=== PATIENT | male | born 1965 | race Caucasian/White ===

== ENCOUNTER 2022-02-08 09:23 | Inpatient (IN) ==
--- NOTE | 2022-01-10 14:08 | PAT Medication Instructions ---
Medication Instructions Date of Service January 10, 2022 Home Medications atomoxetine 80 mg capsule (Strattera) 80 mg PO QAM bupropion HCl 100 mg tablet,12 hr sustained-release 100 mg PO BID omeprazole 20 mg capsule,delayed release 20 mg PO QAM tamsulosin 0.4 mg capsule (Flomax) 0.4 mg PO HS zolpidem 10 mg tablet (Ambien) 10 mg PO HS PRN zolpidem 5 mg tablet 10 mg PO HS DO NOT take the morning of surgery atomoxetine 80 mg capsule (Strattera) 80 mg PO QAM Take morning of surgery With a small sip of water, OTHERWISE NOTHING TO EAT OR DRINK AFTER MIDNIGHT: bupropion HCl 100 mg tablet,12 hr sustained-release 100 mg PO BID omeprazole 20 mg capsule,delayed release 20 mg PO QAM Take evening before surgery bupropion HCl 100 mg tablet,12 hr sustained-release 100 mg PO BID tamsulosin 0.4 mg capsule (Flomax) 0.4 mg PO HS zolpidem 10 mg tablet (Ambien) 10 mg PO HS PRN(if needed) zolpidem 5 mg tablet 10 mg PO HS Other Notes If you have any questions please call us at [phone] or [phone] or [phone] or [phone]
--- NOTE | 2022-01-16 11:00 | Anesthesiology Consultation ---
Date of Service January 16, 2022 Assessment & Plan (1) Encounter for pre-operative examination: - possible difficult intubation: chronic neck pain with occasional numbness in L arm; pt states did notify Dr. Cooper's office. Tanisha with surgeon's office made aware. Case discussed with Dr. Leger who advised nothing further needed from anesthesia standpoint. - COVID screening: Per assessment on 01/16/2022: Travel screen negative, no known COVID-19 positive contacts or current COVID-19 related symptoms in past 2 weeks. Pt vaccinated. Surgeon arranging preop COVID testing, scheduled 01/25/2022. Awaiting results. Chart Review Chart Review: Acceptable Risk for Surgery and Patient seen in Pre Admission Testing Teaching & Discussion Pre-Anesthesia Teaching/Discussion Notes: Instructed NPO after midnight before surgery, except medications with 15 cc of water. Medication instructions provided according to the PAT guidelines. History Surgery Operation Date: 01/29/22 10:05 Proposed Procedures p L3-L4 and L5-S1 Decompression, L3-S1 Fusion, L4-L5 Hardware Removal, Spinal Cord Monitoring - Blane Cooper, Height/Weight Height: 5 ft 8 in Weight: 110.6 kg Allergies Allergy/AdvReac Type Severity Reaction Status Date / Time No Known Allergies Allergy Unverified 07/10/12 15:30 Medications Home Medications Medication Instructions Recorded Confirmed Last Taken atomoxetine 80 mg capsule 80 mg PO QAM 01/10/22 01/10/22 Unknown (Strattera) bupropion HCl 100 mg tablet,12 hr 100 mg PO BID 01/10/22 01/10/22 Unknown sustained-release omeprazole 20 mg capsule,delayed 20 mg PO QAM 01/10/22 01/10/22 Unknown release tamsulosin 0.4 mg capsule (Flomax) 0.4 mg PO HS 01/10/22 01/10/22 Unknown zolpidem 10 mg tablet (Ambien) 10 mg PO HS PRN 01/10/22 01/10/22 Unknown zolpidem 5 mg tablet 10 mg PO HS 01/10/22 01/10/22 Unknown Past Medical History Medical History (Updated 01/16/22 @ 11:20 by Madalyn Del Rosario PA-C) BPH (benign prostatic hyperplasia) Chronic back pain Degenerative disc disease GERD (gastroesophageal reflux disease) controlled, stable per pt Hiatal hernia History of COVID-19 spring 2019 - low fever, congestion - no hospitalization - resolved Sleep apnea cpap-compliant Patient denies h/o stroke, seizures, heart attack, heart failure, DM, HTN, blood clots or blood transfusions. Exercise / Class Metabolic Activity III < 4 Walking/Shop/Light housework (denies CP or SOB) Past Family History Family History Mother Diabetes Past Surgical History Surgical History (Updated 01/16/22 @ 11:23 by Madalyn Del Rosario PA-C) History of carpal tunnel release of both wrists History of colonoscopy History of open reduction and internal fixation (ORIF) procedure bilateral thumb joints History of prostate surgery History of vasectomy Hx of arthroscopy of right knee Hx of arthroscopy of shoulder Right, with additional procedure, unknown "repair" per pt Past Anesthesia History No Hx of Anesthesia Complications and Other (father with post-op hypotension) History of PONV No Hx of PONV and No Hx of Motion Sickness Social History Smoking Status: Never smoker Do You Dip or Chew Tobacco: No Hx Alcohol Use: No Hx Substance Use: No substance use type: does not use Review of Systems Patient denies chest pain, shortness of breath, dyspnea on exertion, fever, chills, cough, wheezing, or palpitations. Physical Exam Vital Signs Vitals BP 151/95 P 89 TEMP 98.6 SP02 95% on RA RESP 17 Physical Limited cervical extension range of motion without pain TMD 3.5 finger breadths Mallampati Score 3 Dentition: intact, two chipped teeth-lower side bilat; denies missing or loose teeth, caps/crowns, implants or bridges Lungs: normal respiratory effort. Clear throughout to auscultation, no adventitious breath sounds Cardiac: regular rate and rhythm, no murmurs noted Carotid arteries: negative bruit bilat Lab Results Anesthesia Preop Results Results Anesthesia Widget: WBC 6.94 K/uL (4.8-10.8) 01/16/22 Hgb 13.9 g/dL (14.0-18.0) L 01/16/22 Hct 41.9 % (42-52) L 01/16/22 Plt 285 K/uL (130-400) 01/16/22 Na 138 mmol/L (136-145) 01/16/22 K 4.0 mmol/L (3.5-5.1) 01/16/22 Cl 105 mmol/L (98-107) 01/16/22 CO2 26 mmol/L (21-32) 01/16/22 BUN 16 mg/dl (6-23) 01/16/22 Creat 0.97 mg/dl (0.6-1.4) 01/16/22 Glucose Level 102 mg/dl (70-99(Fasting)) H 01/16/22 PT 11.1 Seconds (9.0-12.0) 01/16/22 PTT 27.1 Seconds (21.0-31.0) 01/16/22 INR 1.0 (0.9-1.1) 01/16/22 Urine Color Yellow 01/16/22 Urine Appearance Clear (Clear) 01/16/22 Urine pH 5.0 (4.5-7.5) 01/16/22 Urine Specific Amelia 1.010 (1.000-1.030) 01/16/22 Urine Protein Negative (Negative) 01/16/22 Urine Glucose (UA) Negative (Negative) 01/16/22 Urine Ketones Negative (Negative) 01/16/22 Urine Blood Negative (Negative) 01/16/22 Urine Nitrite Negative (Negative) 01/16/22 Urine Bilirubin Negative (Negative) 01/16/22 Urine Urobilinogen Negative (Negative) 01/16/22 Urine Leukocyte Esterase Negative (Negative) 01/16/22 Blood Type O Positive 01/16/22 Antibody Screen NEGATIVE 01/16/22 Testing Electrocardiogram Date: 01/16/22 NSR, rate 90 bpm Chest X-Ray Date: 01/16/22 No lines and tubes are seen. The aorta is tortuous. The remainder of the cardiomediastinal silhouette is unremarkable. Lungs are underinflated but clear. No evidence of pleural effusion or pneumothorax. There is suggestion of a hiatal hernia. IMPRESSION: No acute chest disease.
[~2022-02-08 09:23] MED LIST: ACETAMINOPHEN 500 MG TAB PO SCH; CeleBREX 200 MG CAP PO SCH; GABAPENTIN 600 MG DOSE PO SCH; LR 15ML/HR IV SCH; ceFAZolin 2000MG 2,000 MG/15 ML SYR IV SCH
[2022-02-08] MEDS ORDERED: MIDAZOLAM HCL 1 MG/ML 2ML VIAL ONE (10:44)
[2022-02-08] MEDS ORDERED: fentaNYL citrate 100 MCG/2 ML VIAL ONE (10:44)
[2022-02-08] MEDS ORDERED: ONDANSETRON INJ 2 MG/ML 2 ML VIAL IV PRN ×2 (11:44→16:33)
[2022-02-08] MEDS ORDERED: ATROPINE SULFATE 0.1 MG/ML 10ML SYR IV PRN (11:44)
[2022-02-08] MEDS ORDERED: ePHEDrine sulfate 50 MG/ML AMP IV PRN (11:44)
--- NOTE | 2022-02-08 11:51 | History & Physical Bridge Note ---
Date of Service February 08, 2022 History & Physical Bridge Note I have examined the patient, reviewed the History & Physical and in the interval since the performance of the History & Physical I have noted the following changes of clinical significance: no changes noted
--- NOTE | 2022-02-08 11:52 | History & Physical Report ---
Date of Service February 08, 2022 Assessment & Plan (1) Neurogenic claudication due to lumbar spinal stenosis: Plan: L3-L4 and L5-S1 decompression, L3-S1 fusion, L4-L5 hardware removal History of Present Illness Chief Complaint: Back and bilateral leg pain Primary Care Provider: Jose Silver MD This is a 56-year-old male well-known to the presents with worsening back and bilateral leg pain. Failing course of nonoperative care is here for surgical intervention. Allergies Allergy/AdvReac Type Severity Reaction Status Date / Time No Known Allergies Allergy Verified 02/08/22 10:06 Home Medications Medication Instructions Recorded Confirmed Type atomoxetine 80 mg capsule 80 mg PO QAM 01/10/22 02/08/22 History (Strattera) bupropion HCl 100 mg tablet,12 hr 100 mg PO BID 01/10/22 02/08/22 History sustained-release omeprazole 20 mg capsule,delayed 20 mg PO QAM 01/10/22 02/08/22 History release tamsulosin 0.4 mg capsule (Flomax) 0.4 mg PO HS 01/10/22 02/08/22 History zolpidem 10 mg tablet (Ambien) 10 mg PO HS PRN Sleep 01/10/22 02/08/22 History zolpidem 5 mg tablet 10 mg PO HS 01/10/22 02/08/22 History duloxetine 60 mg PO 1XD 02/08/22 02/08/22 History gabapentin 700 mg PO 3XD 02/08/22 02/08/22 History Past Med/Surg History Medical History (Updated 02/08/22 @ 11:51 by Blane Cooper DO) BPH (benign prostatic hyperplasia) Chronic back pain Degenerative disc disease GERD (gastroesophageal reflux disease) controlled, stable per pt Hiatal hernia History of COVID-spring - low fever, congestion - no hospitalization - resolved Sleep apnea cpap-compliant Surgical History History of carpal tunnel release of both wrists History of colonoscopy History of open reduction and internal fixation (ORIF) procedure bilateral thumb joints History of prostate surgery History of vasectomy Hx of arthroscopy of right knee Hx of arthroscopy of shoulder Right, with additional procedure, unknown "repair" per pt Family History Mother Diabetes Social History Smoking Status: Never smoker Second Hand Exposure: No; Do You Dip or Chew Tobacco: No; Tobacco Cessation Education Requested by Patient: No Hx Alcohol Use: No Hx Substance Use: No Preferred Language: German Communication Ability: Effective Manager Package Required: No Beliefs That Will Affect Care: None Current Living Situation: Spouse Other Information That Helps Us Care for You: No Feels Safe at Home: Yes Safety Concerns: Feels Safe At This Time Assistive Devices: CPAP and Glasses Physical Exam Physical Exam: Patient is alert and oriented Heart regular in rhythm Lungs clear Results & Data Results & Data ([facility]) Vital Signs (Past 12 Hours) Vital Signs Temp Pulse Resp BP Pulse Ox O2 Del Method 02/08/22 10:04 36.7 C 84 20 152/101 H 95 Room Air
[2022-02-08] MEDS ORDERED: ceFAZolin 330 MG/ML 1 GM VIAL ONE (11:55)
[2022-02-08] MEDS ORDERED: BUPIVACAINE/EPINEPHRINE 0.25% 1:200,000 30 ML VIAL ONE (11:55)
[2022-02-08] MEDS ORDERED: GLYCOPYRROLATE 0.2 MG/ML VIAL ONE (11:57)
[2022-02-08] MEDS ORDERED: ROCURONIUM BROMIDE 10 MG/ML 5 ML VIAL IV ONE ×3 (11:57→13:19)
[2022-02-08] MEDS ORDERED: LIDOCAINE 2% MPF LOCAL 5 ML VIAL INFIL ONE (11:57)
[2022-02-08] MEDS ORDERED: PROPOFOL IV EMULSION 10 MG/ML 20 ML VIAL IV ONE (11:57)
[2022-02-08] MEDS ORDERED: DEXAMETHASONE SOD INJ 4 MG/ML VIAL ONE (11:57)
[2022-02-08] MEDS ORDERED: NEOSTIGMINE METHYLSULFATE 1 MG/ML 10ML VIAL ONE (11:57)
[2022-02-08] MEDS ORDERED: ONDANSETRON INJ 2 MG/ML 2 ML VIAL ONE (11:57)
[2022-02-08] MEDS ORDERED: FLOSEAL HEMOSTATIC MATRIX 10ML TOP ONE (14:31)
--- NOTE | 2022-02-08 15:06 | Operative Report ---
Post Operative Report Pre & Post Diagnosis Operation Date: 02/08/22 11:55 Pre-Op Diagnosis: Neurogenic Claudication due to Lumbar Spinal Stenosis Post-Op Diagnosis: Neurogenic Claudication due to Lumbar Spinal Stenosis I identified the patient and participated in the time-out.: Yes Procedure Operation Date: 02/08/22 11:55 Actual Procedures #1 removal of posterior instrumentation L4-L5 per #2 exploration of fusion L4-5. #3 lumbar decompression bilateral medial facetectomies and foraminotomies L3-L4 L5-S1. #4 posterior spinal fusion L3-L4 L5-S1. #5 placement posterior instrumentation L3-S1. #6 interbody fusion L3-L4 L4-5. #7 placement of Spira 15 x 26 mm cage at L3-L4 and L5-S1. #8 placement locally harvested morselized autograft in the posterior legs. #9 placement of I factor model V toss interbody space and posterior gutters. Surgeon Blane Cooper, DO Spike Maker [place] Estimated Blood Loss 850 Findings See Below The patient is 5 foot 8 weighing over 108 kg a BMI in excess of 36. This combined with an EBL of greater than 850 cc created significant technical difficulty requiring her deepest retractors longus instruments in order to perform his procedure. This at least 50% increased operative time. Specimens None Indications This is a 56-year-old male who presents with above-mentioned diagnosis after failing course of nonoperative care is here for surgical invention. Description of Procedure Patient is met with identified informed consent obtained. Patient was then taken to the operative suite underwent a patient placed in a prone position the [place] table top Farzad frame. All bony prominences well-padded eyes inspected to ensure no external pressure placed upon the. This point the lumbar spine was prepped and draped in normal sterile fashion. Sharp dissection with the assistance of Bovie cardiac form down to and exposing the lamina and transverse processes of L3 and instrumentation at L4-L5 and the lamina 5 and the transverse processes and sacral ala. I then proceeded move the hardware at L4-L5 bilaterally explore the fusion mass noting it to be mature and intact. Then formed a complete laminectomy L5 followed by complete laminectomy of L3 including bilateral medial facetectomies and foraminotomies addressing severe subarticular and foraminal stenosis. Pedicle screws were then placed in L3-L4-L5 and S1 levels bilaterally with assistance of fluoroscopy and the properly sized mikhail placed. By way of a transforaminal approach on the left complete discectomy of L5-S1 was performed endplates curetted to subcortical bleeding bone and a 15 x 26 mm spiral cage filled with I factor tapped in position. Then proceeded L3-L4 to get by way of a transfemoral approach and left complete discectomy performed endplates curetted to subcortical bleeding bone and again a 15 x 26 mm spiral cage filled I factor tapped in position. The rods were then compressed locked into final position bilaterally. The transverse processes of L3-L4-L5 and the sacral ala burred to subcortical bleeding bone. I factor combined with V toss and locally harvested morselized autograft was then placed in the posterior lateral gutters. 15 round LINK drain inserted. The incision was then closed with 1 Vicryl to fascia 2-0 Vicryl subcutaneously and 4 Monocryl for final skin closure. Steri-Strip sterile dressings placed. Patient waken taken PACU stable condition. Please note spinal cord monitoring was utilized at the procedure no changes noted. Lastly Nia Park was present out the entire surgery and while the patient positioning complex portions of the surgery and final skin closure. I attest to the content of the Intraoperative Record and any orders documented therein. Any exceptions are noted below.
--- NOTE | 2022-02-08 15:08 | Fluoroscopy Report ---
FL lumbar spine 2-3V CLINICAL HISTORY: L4-5 REMOVE HARDWARE L3-S1 DFI COMPARISON STUDY: None. FLUOROSCOPY TIME: 28 seconds. FINDINGS: 4 fluoroscopic spot images of the lumbar spine demonstrate posterior decompression and fusi on from L3 through S1 with pedicle screws and rods. Disc spacers are in place. The hardware appears i ntact. IMPRESSION: Fluoroscopic assistance provided for L3-S1 posterior decompression and fusion. ACT 112: Negative or not required by law. Electronically signed by: Ankit Garcia M.D. 02/08/2022 3:07 PM
[2022-02-08] MEDS ORDERED: PHENYLEPHRINE HCL 10 MG/ML VIAL ONE (15:20)
[2022-02-08] MEDS ORDERED: ePHEDrine sulfate 50 MG/ML AMP ONE (15:20)
[2022-02-08] MEDS: fentaNYL citrate 100 MCG/2 ML VIAL IV PRN ×3 (15:27→16:02)
[2022-02-08] MEDS ORDERED: ALUMINUM/MAGNESIUM SUSP 30 ML UDC PO PRN (16:33)
[2022-02-08] MEDS ORDERED: FAMOTIDINE 20 MG TAB PO PRN (16:33)
[2022-02-08] MEDS ORDERED: HYDROmorphone INJ 1 MG/ML SYRINGE IV PRN (16:33)
[2022-02-08] MEDS ORDERED: ZOLPIDEM TARTRATE 10 MG TAB PO PRN (16:33)
[2022-02-08] MEDS ORDERED: SOD PHOSPHATE/SOD BIPHOSPHATE ENEMA 132 ML BTL PR PRN (16:33)
[2022-02-08] MEDS ORDERED: MAGNESIUM HYDROXIDE SUSP 30 ML UDC PO PRN (16:33)
[2022-02-08] MEDS ORDERED: traMADol HCL 50 MG TABLET PO PRN (16:33)
[2022-02-08] MEDS ORDERED: METOCLOPRAMIDE HCL INJ 5 MG/ML 2 ML VIAL IV PRN (16:33)
[2022-02-08] MEDS ORDERED: hydrOXYzine HCl 25 MG TAB PO PRN (16:33)
[2022-02-08] MEDS ORDERED: LORazepam 0.5 MG TAB PO PRN (16:33)
[2022-02-08] MEDS ORDERED: ACETAMINOPHEN 500 MG TAB PO PRN (16:33)
[2022-02-08] MEDS ORDERED: PROMETHAZINE HCL 12.5 MG in SODIUM CHLORIDE 0.9% 50 ML IV PRN (16:33)
[2022-02-08] MEDS ORDERED: DO NOT ADMINISTER FLU VACCINE PRN (16:33)
[2022-02-08] MEDS ORDERED: NALOXONE HCL 0.4 MG/1 ML VIAL/CARP IV PRN (16:33)
[2022-02-08] MEDS ORDERED: ACETAMINOPHEN 1,000 MG/100 ML VIAL IV PRN (16:33)
[2022-02-08] MEDS ORDERED: DO NOT ADMINISTER PNEUMOCOCCAL VACCINE PRN (16:33)
[2022-02-08] MEDS ORDERED: bisacodyL 10 MG SUPP PR PRN (16:33)
[2022-02-08] MEDS ORDERED: LORazepam 0.5 MG in SYRINGE 0.25 ML IV PRN (16:33)
[2022-02-08] MEDS ORDERED: diphenhydrAMINE Capsule 25 MG CAP PO PRN (16:33)
[2022-02-08] MEDS ORDERED: ONDANSETRON 4 MG OD TAB PO PRN (16:33)
--- NOTE | 2022-02-08 16:47 | Anesthesiology Progress Note ---
Date of Service February 08, 2022 Anesthesia Post Procedure Vital Signs Vital Signs: Temp Pulse Pulse Resp BP BP Pulse Ox 02/08/22 16:35 96 H 20 110/70 97 02/08/22 16:20 87 20 119/76 95 02/08/22 16:10 95 H 19 113/60 98 02/08/22 16:00 36.5 C 96 H 14 106/72 94 02/08/22 15:50 91 H 21 139/78 94 02/08/22 15:40 88 18 135/85 95 02/08/22 15:30 88 18 126/79 98 02/08/22 15:20 93 H 24 124/69 94 02/08/22 15:11 36.0 C L 98 H 25 H 105/64 94 02/08/22 10:04 36.7 C 84 20 152/101 H 95 O2 Del Method O2 Flow Rate 02/08/22 16:35 Nasal Cannula 2 02/08/22 16:20 Nasal Cannula 2 02/08/22 16:10 Room Air 02/08/22 16:00 Room Air 02/08/22 15:50 Oxymask 7 02/08/22 15:40 Oxymask 7 02/08/22 15:30 Oxymask 7 02/08/22 15:20 Oxymask 7 02/08/22 15:11 Oxymask 7 02/08/22 10:04 Room Air Pain Intensity Lower Back: Pain Intensity: 1 Back: Pain Intensity: 4 Transfer of Care Handoff Completed per policy Notes Mental Status: alert / awake / arousable Patient Amnestic to Procedure: Yes Nausea / Vomiting: adequately controlled Pain: adequately controlled Airway Patency, RR, SpO2: stable & adequate BP & HR: stable & adequate Hydration State: stable & adequate Anesthetic Complications: no major complications apparent
[2022-02-08] MEDS: LACTATED RINGER'S 1,000 ML IV SCH ×2 (16:57→20:58)
[2022-02-08] MEDS: HYDROmorphone INJ 0.5 MG/0.5 ML SYR IV PRN ×2 (17:39→20:59)
[2022-02-08] MEDS: oxyCODONE HCL IR 5 MG TAB (IMMEDIATE RELEASE) PO PRN ×2 (19:10→23:16)
[2022-02-08] MEDS: buPROPion SR 100 MG TABCR PO SCH (20:26)
[2022-02-08] MEDS: ceFAZolin 2000MG 2,000 MG/15 ML SYR IV SCH (20:58)
[2022-02-08] MEDS: ZOLPIDEM TARTRATE 10 MG TAB PO SCH (20:58)
[2022-02-08] MEDS: TAMSULOSIN HCL 0.4 MG CAP PO SCH (20:59)
[2022-02-08] MEDS: GABAPENTIN 400 MG CAP PO SCH (21:00)
[2022-02-08] MEDS: DOCUSATE SODIUM/SENNA 50/8.6MG TAB PO SCH (21:00)
[2022-02-08] MEDS: GABAPENTIN 300 MG CAP PO SCH (21:00)
--- NOTE | 2022-02-08 21:31 | Hospitalist Consultation ---
Date of Consultation February 08, 2022 Assessment & Plan (1) Neurogenic claudication due to lumbar spinal stenosis: Final Assessment and Recommendations as follows : LSS status post surgery Patient comfortable Postop tachycardia secondary to mild clinical dehydration with note of increase in creatinine hypertension, stable not on maintenance meds ADD/mood disorder, stable BPH, stable on Flomax prediabetes, hemoglobin A1c of 6.14 December 2019 Postop anemia MORTEZA on CPAP IVF Hold parameters for multiple neuropsychotropic medications for sedation/confusion Transfuse PRBC if hemoglobin less than 7 and or for symptomatic anemia Update hemoglobin A1c May need basal bolus insulin if BSG greater than 140 following inpatient steroid course. DVT prophylaxis. SCDs as per postop orders Thank you very much for this consultation. Dr. Hernadez will follow patient's progress. Text document was generated using [employer] voice recognition software. It may contain grammatical or spelling errors. Kindly contact undersigned for clarification of any documentation item in question. History of Present Illness Reason for Consultation: Medical management Requesting Physician: Dr. Cooper Attending Physician: Blane Cooper DO History of Present Illness PCP : Dr. Silver History obtained from patient and records. Medical history significant for hypertension, ADD/mood disorder, NAFLD, BPH, prediabetes, MORTEZA on CPAP. Last confinement 2011 under [facility] spine service for lumbar decompression surgery. Patient underwent decompression surgery today for L SS. Postop discomfort tolerable. Patient denies chest pain, SOB. Medical History as above Surgical History : Back surgery, carpal tunnel surgery, knee surgery, urologic procedure, carpectomy, shoulder surgery, vasectomy Family History : DM, heart disease, prostate cancer Personal/Social history : Non-smoker, occasional EtOH intake, Polar Allergies Allergy/AdvReac Type Severity Reaction Status Date / Time No Known Allergies Allergy Verified 02/08/22 10:06 Home Medications Medication Instructions Recorded Confirmed Type atomoxetine 80 mg capsule 80 mg PO QAM 01/10/22 02/08/22 History (Strattera) bupropion HCl 100 mg tablet,12 hr 100 mg PO BID 01/10/22 02/08/22 History sustained-release omeprazole 20 mg capsule,delayed 20 mg PO QAM 01/10/22 02/08/22 History release tamsulosin 0.4 mg capsule (Flomax) 0.4 mg PO HS 01/10/22 02/08/22 History zolpidem 10 mg tablet (Ambien) 10 mg PO HS PRN Sleep 01/10/22 02/08/22 History zolpidem 5 mg tablet 10 mg PO HS 01/10/22 02/08/22 History duloxetine 60 mg PO 1XD 02/08/22 02/08/22 History gabapentin 700 mg PO 3XD 02/08/22 02/08/22 History Patient History Medical History (Updated 02/08/22 @ 11:51 by Blane Cooper DO) BPH (benign prostatic hyperplasia) Chronic back pain Degenerative disc disease GERD (gastroesophageal reflux disease) controlled, stable per pt Hiatal hernia History of COVID-19 spring 2019 - low fever, congestion - no hospitalization - resolved Sleep apnea cpap-compliant Surgical History History of carpal tunnel release of both wrists History of colonoscopy History of open reduction and internal fixation (ORIF) procedure bilateral thumb joints History of prostate surgery History of vasectomy Hx of arthroscopy of right knee Hx of arthroscopy of shoulder Right, with additional procedure, unknown "repair" per pt Family History Mother Diabetes Social History Smoking Status: Never smoker Second Hand Exposure: No; Do You Dip or Chew Tobacco: No; Tobacco Cessation Education Requested by Patient: No Hx Alcohol Use: No Hx Substance Use: No Preferred Language: Turkish Communication Ability: Effective 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 Beliefs That Will Affect Care: None Current Living Situation: Spouse Other Information That Helps Us Care for You: No Feels Safe at Home: Yes Safety Concerns: Feels Safe At This Time Assistive Devices: CPAP and Glasses Review of Systems 2 Review of Systems: As per HPI, all other systems reviewed and negative Physical Exam Physical Exam: GENERAL: Comfortable, pleasant, obese, no respiratory distress SKIN: Pallor,, warm HEENT: Pale palpebral conjunctivae, no ptosis, dry buccal mucosa NECK : Supple, short neck, no tenderness CHEST : CTA, no tenderness HEART : Tachycardic, no obvious murmurs ABDOMEN: Some distention, nontender EXTREMITIES : Minimal LE swelling, no LE tenderness, no other conspicuous deformities noted NEUROLOGIC : Coherent, no facial asymmetry, no other gross focality Results & Data Results & Data ([facility]) Vital Signs (Past 12 Hours) Vital Signs Temp Pulse Pulse Resp BP BP Pulse Ox 02/08/22 19:45 37.3 C 108 H 18 115/72 93 02/08/22 19:25 99 H 20 121/76 95 02/08/22 18:40 36.8 C 100 H 20 131/75 95 02/08/22 18:10 98 H 21 119/80 93 02/08/22 17:50 104 H 20 122/79 93 02/08/22 17:35 36.2 C L 98 H 18 114/78 95 02/08/22 17:20 102 H 19 119/72 95 02/08/22 17:05 101 H 23 111/79 94 02/08/22 16:50 99 H 22 106/83 96 02/08/22 16:35 96 H 20 110/70 97 02/08/22 16:20 87 20 119/76 95 02/08/22 16:10 95 H 19 113/60 98 02/08/22 16:00 36.5 C 96 H 14 106/72 94 02/08/22 15:50 91 H 21 139/78 94 02/08/22 15:40 88 18 135/85 95 02/08/22 15:30 88 18 126/79 98 02/08/22 15:20 93 H 24 124/69 94 02/08/22 15:11 36.0 C L 98 H 25 H 105/64 94 02/08/22 10:04 36.7 C 84 20 152/101 H 95 O2 Del Method O2 Flow Rate 02/08/22 19:45 Nasal Cannula 2 02/08/22 19:25 Nasal Cannula 2 02/08/22 18:40 Nasal Cannula 2 02/08/22 18:10 Nasal Cannula 2 02/08/22 17:50 Nasal Cannula 2 02/08/22 17:35 Nasal Cannula 2 02/08/22 17:20 Nasal Cannula 2 02/08/22 17:05 Nasal Cannula 2 02/08/22 16:50 Nasal Cannula 2 02/08/22 16:35 Nasal Cannula 2 02/08/22 16:20 Nasal Cannula 2 02/08/22 16:10 Room Air 02/08/22 16:00 Room Air 02/08/22 15:50 Oxymask 7 02/08/22 15:40 Oxymask 7 02/08/22 15:30 Oxymask 7 02/08/22 15:20 Oxymask 7 02/08/22 15:11 Oxymask 7 02/08/22 10:04 Room Air Laboratory Results Laboratory Results POC Glucose 90 mg/dl (70-99) 02/08/22 10:05 Blood Type O Positive 02/08/22 10:03 Antibody Screen NEGATIVE 02/08/22 10:03 Crossmatch See Detail 02/08/22 10:03 Impressions Lumbar Spine X-Ray 02/08/22 11:55 FL lumbar spine 2-3V CLINICAL HISTORY: L4-5 REMOVE HARDWARE L3-S1 DFI COMPARISON STUDY: None. FLUOROSCOPY TIME: 28 seconds. FINDINGS: 4 fluoroscopic spot images of the lumbar spine demonstrate posterior decompression and fusion from L3 through S1 with pedicle screws and rods. Disc spacers are in place. The hardware appears intact. IMPRESSION: Fluoroscopic assistance provided for L3-S1 posterior decompression and fusion. ACT 112: Negative or not required by law. Electronically signed by: Ankit Garcia M.D. 02/08/2022 3:07 PM Diagnostic Findings Lab Results 02/08/22 02/08/22 02/08/22 Range/Units 10:03 10:05 21:45 WBC 13.46 H (4.8-10.8) K/ul RBC 4.14 L (4.63-6.08) M/uL Hgb 12.3 L (14.0-18.0) g/dl Hct 37.2 L (40.1-51.0) % MCV 89.9 (80.0-100.0) fL MCH 29.7 (25.0-34.0) pg MCHC 33.1 (32.0-36.0) g/dL RDW Std Deviation 42.5 (36.4-46.3) fL RDW Coeff of Adonay 13.0 (11.5-14.5) % Plt Count 298 (130-400) K/uL MPV 9.9 (9.4-12.4) fL Immature Gran % (Auto) 0.4 % Neut % (Auto) 86.2 % Lymph % (Auto) 6.9 % [place] % (Auto) 6.4 % Eos % (Auto) 0.0 % Baso % (Auto) 0.1 % Neut # (Auto) 11.60 H (1.4-6.5) K/uL Lymph # (Auto) 0.93 L (1.2-3.4) K/uL [place] # (Auto) 0.86 H (0.24-0.82) K/uL Eos # (Auto) 0.00 (0-0.50) K/uL Baso # (Auto) 0.01 (0-0.2) K/uL Immature Gran # (Auto) 0.06 H (0.00-0.02) K/uL Sodium (136-145) mmol/L Potassium (3.5-5.1) mmol/L Chloride (98-107) mmol/L Carbon Dioxide (21-32) mmol/L Anion Gap (3-11) BUN (6-23) mg/dl Creatinine (0.6-1.4) mg/dl Est Cr Clr Drug Dosing ml/min Est GFR ( Amer) ml/min Est GFR (Non-Af Amer) ml/min BUN/Creatinine Ratio (10-20) Glucose (70-99(Fasting)) mg/dl POC Glucose 90 (70-99) mg/dl Calcium (8.5-10.1) mg/dl Magnesium (1.7-2.4) mg/dl Blood Type O Positive Antibody Screen NEGATIVE Crossmatch See Detail 02/08/22 Range/Units 21:45 WBC (4.8-10.8) K/ul RBC (4.63-6.08) M/uL Hgb (14.0-18.0) g/dl Hct (40.1-51.0) % MCV (80.0-100.0) fL MCH (25.0-34.0) pg MCHC (32.0-36.0) g/dL RDW Std Deviation (36.4-46.3) fL RDW Coeff of Adonay (11.5-14.5) % Plt Count (130-400) K/uL MPV (9.4-12.4) fL Immature Gran % (Auto) % Neut % (Auto) % Lymph % (Auto) % [place] % (Auto) % Eos % (Auto) % Baso % (Auto) % Neut # (Auto) (1.4-6.5) K/uL Lymph # (Auto) (1.2-3.4) K/uL [place] # (Auto) (0.24-0.82) K/uL Eos # (Auto) (0-0.50) K/uL Baso # (Auto) (0-0.2) K/uL Immature Gran # (Auto) (0.00-0.02) K/uL Sodium 134 L (136-145) mmol/L Potassium 4.9 (3.5-5.1) mmol/L Chloride 102 (98-107) mmol/L Carbon Dioxide 26 (21-32) mmol/L Anion Gap 6 (3-11) BUN 21 (6-23) mg/dl Creatinine 1.30 (0.6-1.4) mg/dl Est Cr Clr Drug Dosing 74.8 ml/min Est GFR ( Amer) 70.2 ml/min Est GFR (Non-Af Amer) 60.6 ml/min BUN/Creatinine Ratio 16.2 (10-20) Glucose 158 H (70-99(Fasting)) mg/dl POC Glucose (70-99) mg/dl Calcium 8.5 (8.5-10.1) mg/dl Magnesium 1.6 L (1.7-2.4) mg/dl Blood Type Antibody Screen Crossmatch EKG as per my interpretation :Rate 95, NSR, normal axis, no ischemia
[2022-02-08 21:52] LABS: Basophils # (auto) 0.01 K/uL (0-0.2); Basophils % (auto) 0.1 %; Hematocrit (blood only) 37.2 % (40.1-51.0); Hemoglobin 12.3 g/dl (14.0-18.0); Immature Granulocytes # (auto) 0.06 K/uL (0.00-0.02); Immature Granulocytes % (auto) 0.4 %; Lymphocytes # (auto) 0.93 K/uL (1.2-3.4); Lymphocytes % (auto) 6.9 %; Mean Corpuscular Hemoglobin 29.7 pg (25.0-34.0); Mean Corpuscular Hgb Conc 33.1 g/dL (32.0-36.0); Mean Corpuscular Volume 89.9 fL (80.0-100.0); Mean Platelet Volume 9.9 fL (9.4-12.4); Monocytes # (auto) 0.86 K/uL (0.24-0.82); Monocytes % (auto) 6.4 %; Neutrophils % (auto) 86.2 %; Platelet Count 298 K/uL (130-400); RDW Standard Deviation 42.5 fL (36.4-46.3); Red Blood Count 4.14 M/uL (4.63-6.08); White Blood Count 13.46 K/ul (4.8-10.8)
[2022-02-08 22:14] LABS: BUN Creatinine Ratio 16.2 (10-20); Calcium 8.5 mg/dl (8.5-10.1); Creatinine Clr Calc Pharmacy 74.8 ml/min; Est GFR (African American) 70.2 ml/min; Est GFR (Non-African American) 60.6 ml/min; Magnesium 1.6 mg/dl (1.7-2.4); Potassium 4.9 mmol/L (3.5-5.1)
[2022-02-08] MEDS ORDERED: SODIUM CHLORIDE 0.9% 1000ML 1,000 ML IV ONE (22:18)
[2022-02-08] MEDS: MAGNESIUM SULFATE / D5W 1 GM/100 ML BAG IV SCH (22:51)
[2022-02-09] MEDS: MAGNESIUM SULFATE / D5W 1 GM/100 ML BAG IV SCH (00:40)
[2022-02-09] MEDS: ceFAZolin 2000MG 2,000 MG/15 ML SYR IV SCH (03:35)
[2022-02-09] MEDS: POLYETHYLENE (MIRALAX) 17 GM PACK PO SCH ×4 (06:12→23:47)
[2022-02-09 06:23] LABS: Basophils # (auto) 0.02 K/uL (0-0.2); Basophils % (auto) 0.1 %; Eosinophils # (auto) 0.01 K/uL (0-0.50); Eosinophils % (auto) 0.1 %; Hematocrit (blood only) 35.8 % (40.1-51.0); Hemoglobin 11.8 g/dl (14.0-18.0); Immature Granulocytes # (auto) 0.06 K/uL (0.00-0.02); Immature Granulocytes % (auto) 0.4 %; Lymphocytes # (auto) 2.09 K/uL (1.2-3.4); Lymphocytes % (auto) 15.2 %; Mean Corpuscular Hemoglobin 29.6 pg (25.0-34.0); Mean Corpuscular Volume 89.7 fL (80.0-100.0); Mean Platelet Volume 9.8 fL (9.4-12.4); Monocytes # (auto) 1.67 K/uL (0.24-0.82); Monocytes % (auto) 12.2 %; Neutrophils # (auto) 9.88 K/uL (1.4-6.5); Platelet Count 285 K/uL (130-400); RDW Standard Deviation 42.7 fL (36.4-46.3); Red Blood Count 3.99 M/uL (4.63-6.08); White Blood Count 13.73 K/ul (4.8-10.8)
[2022-02-09] MEDS: oxyCODONE HCL IR 5 MG TAB (IMMEDIATE RELEASE) PO PRN ×4 (06:28→22:01)
[2022-02-09 07:00] LABS: BUN Creatinine Ratio 17.4 (10-20); Calcium 8.1 mg/dl (8.5-10.1); Creatinine Clr Calc Pharmacy 89.3 ml/min; Est GFR (African American) 86.9 ml/min; Est GFR (Non-African American) 74.9 ml/min; Magnesium 2.1 mg/dl (1.7-2.4); Potassium 4.5 mmol/L (3.5-5.1)
[2022-02-09 07:20] LABS: Estimated Average Glucose 137 mg/dl; Hemoglobin A1C 6.4 % (4.5-5.6)
[2022-02-09] MEDS: HYDROmorphone INJ 0.5 MG/0.5 ML SYR IV PRN (07:46)
[2022-02-09] MEDS: GABAPENTIN 400 MG CAP PO SCH ×3 (08:57→21:48)
[2022-02-09] MEDS: dexAMETHasone 6 MG in SYRINGE 0 ML IV SCH (08:57)
[2022-02-09] MEDS: GABAPENTIN 300 MG CAP PO SCH ×3 (08:57→21:50)
[2022-02-09] MEDS: buPROPion SR 100 MG TABCR PO SCH ×2 (08:58→21:51)
[2022-02-09] MEDS: PANTOprazole 40 MG TAB PO SCH (08:58)
[2022-02-09] MEDS: DULoxetine HCL 60 MG CAP PO SCH (08:58)
[2022-02-09] MEDS: ATOMOXETINE HCL 40 MG CAPSULE PO SCH (08:59)
--- NOTE | 2022-02-09 14:08 | Hospitalist Progress Note ---
Date of Service February 09, 2022 Assessment & Plan (1) Neurogenic claudication due to lumbar spinal stenosis: Plan: LSS status post surgery-recovering well, pain well controlled on current medical therapy hypertension, stable not on maintenance meds ADD/mood disorder, stable, cont home strattera BPH, stable on Flomax prediabetes, hemoglobin A1c of 6.14 December 2019, inpatient glucose at goal. expected postop anemia MORTEZA on CPAP Thank you for this consultation. Glendy Hernadez DO [facility] Hospitalist Admission and Anticipated Discharge Date Admission Date: February 08, 2022 Subjective s/p L spine surgery on 02/08 pain well managed pt is ambulating with walker slight numbness in feet when walking denies CP or SOB overall feels he is doing well with his recovery Review of Systems Review of Systems: All systems were reviewed and negative except as indicated above. Physical Exam Physical Exam: CONSTITUTIONAL: WNWD, vitals as above, generally well-appear ing, NAD EYES: normal conjunctivae, no scleral icterus, ENT: external ear and nose normal,MMM NECK: trachea midline, RESPIRATORY: clear to auscultation bilaterally, no crackles, rales or wheezes, normal respiratory effort CARDIOVASCULAR: regular rate and rhythm, S1 and 2 heard without murmurs, gallops or rubs, no JVD, no peripheral edema, CHEST: inspection of chest was normal GASTROINTESTINAL: soft, nontender, ND no guarding MUSCULOSKELETAL: strength 5/5 throughout, head is normocephalic and atraumatic, SKIN: warm and dry, back incision not examined as surgical dressing in place, c /d/i NEUROLOGIC: CN 2-12 grossly intact, no sensory deficit, normal cognition, normal speech, no tremor PSYCHIATRIC: alert cooperative and oriented to person, place and time. Euthymic mood, makes good eye contact, language grossly intact, recent and remote memory grossly intact. Results & Data Results & Data ([facility]) Vital Signs (Past 12 Hours) Vital Signs Temp Pulse Pulse Resp BP Pulse Ox O2 Del Method 02/09/22 11:42 36.8 C 98 H 18 122/81 93 Room Air 02/09/22 09:04 93 Room Air 02/09/22 07:14 36.4 C L 89 18 136/89 95 Nasal Cannula 02/09/22 02:44 36.4 C L 84 18 133/83 96 Nasal Cannula O2 Flow Rate 02/09/22 11:42 02/09/22 09:04 02/09/22 07:14 2 02/09/22 02:44 2 Laboratory Results Short CBC 02/08/22 02/09/22 Range/Units 21:45 06:04 WBC 13.46 H 13.73 H (4.8-10.8) K/ul Hgb 12.3 L 11.8 L (14.0-18.0) g/dl Hct 37.2 L 35.8 L (40.1-51.0) % Plt Count 298 285 (130-400) K/uL BMP 02/08/22 02/09/22 21:45 06:04 Sodium 134 L 135 L Potassium 4.9 4.5 Chloride 102 102 Carbon Dioxide 26 27 BUN 21 19 Creatinine 1.30 1.09 Glucose 158 H 122 H Calcium 8.5 8.1 L Medications Administered Current Inpatient Medications Acetaminophen (Acetaminophen 500 Mg Tab) 1,000 mg PO Q8H PRN PRN Reason: MILD Pain Scale 1,2,3 & Pre PT Stop: 03/10/22 16:32 Al Hydrox/Mg Hydrox/Simethicone (Aluminum/Magnesium Susp 30 Ml Udc) 30 ml PO Q6H PRN PRN Reason: Dyspepsia Stop: 03/10/22 16:32 Atomoxetine HCl (Atomoxetine Hcl 40 Mg Capsule) 80 mg PO QAM [facility] Stop: 03/11/22 08:59 Last Admin: 02/09/22 08:59 Dose: 80 mg Bisacodyl (Bisacodyl 10 Mg Supp) 10 mg MO DAILY PRN PRN Reason: Constipation Stop: 03/10/22 16:32 Bupropion HCl (Bupropion Sr 100 Mg Tabcr) 100 mg PO BID [facility] Stop: 03/10/22 20:59 Last Admin: 02/09/22 08:58 Dose: 100 mg Diphenhydramine HCl (Diphenhydramine Capsule 25 Mg Cap) 25 mg PO Q6H PRN PRN Reason: Allergic Rhinitis/Insomnia Stop: 03/10/22 16:32 Duloxetine HCl (Duloxetine Hcl 60 Mg Cap) 60 mg PO DAILY [facility] Stop: 03/11/22 08:59 Last Admin: 02/09/22 08:58 Dose: 60 mg Famotidine (Famotidine 20 Mg Tab) 20 mg PO Q12H PRN PRN Reason: Dyspepsia Stop: 03/10/22 16:32 Gabapentin (Gabapentin 300 Mg Cap) 300 mg PO TID [facility] Stop: 03/10/22 20:59 Last Admin: 02/09/22 13:55 Dose: 300 mg Gabapentin (Gabapentin 400 Mg Cap) 400 mg PO TID [facility] Stop: 03/10/22 20:59 Last Admin: 02/09/22 13:55 Dose: 400 mg Hydromorphone HCl (Hydromorphone Inj 0.5 Mg/0.5 Ml Syr) 0.5 mg IV Q3H PRN PRN Reason: MODERATE Pain (Scale 4,5,6) & Pre PT Stop: 02/22/22 16:32 Last Admin: 02/09/22 07:46 Dose: 0.5 mg Hydromorphone HCl (Hydromorphone Inj 1 Mg/Ml Syringe) 1 mg IV Q3H PRN PRN Reason: SEVERE Pain (Scale 7,8,9,10) Stop: 02/22/22 16:32 Last Admin: 02/09/22 02:55 Dose: 1 mg Hydroxyzine HCl (Hydroxyzine Hcl 25 Mg Tab) 25 mg PO Q8H PRN PRN Reason: Anxiety Stop: 03/10/22 16:32 Promethazine HCl 12.5 mg/ (Sodium Chloride) 50.5 mls @ 202 mls/hr IV Q6H PRN PRN Reason: Nausea &/or Vomiting Stop: 03/10/22 16:32 Acetaminophen (Ofirmev) 1,000 mg in 100 mls @ 400 mls/hr IV Q8H PRN PRN Reason: Pain Rating 1-3 & Pre PT Stop: 02/09/22 16:33 Lorazepam 0.5 mg/ Syringe 0.5 mls @ 2 mls/min IV Q8H PRN PRN Reason: Sedation/Anxiety Stop: 03/10/22 16:32 Dexamethasone 6 mg/ Syringe 1.5 mls @ 1 mls/min IV DAILY [facility] Stop: 02/11/22 09:02 Last Admin: 02/09/22 08:57 Dose: 1 mls/min Influenza Virus Vaccine Quadrival (Do Not Administer Flu Vaccine) 1 each N/A PRN PRN PRN Reason: Notification Stop: 03/10/22 16:32 Lorazepam (Lorazepam 0.5 Mg Tab) 0.5 mg PO Q8H PRN PRN Reason: Sedation/Anxiety Stop: 03/10/22 16:32 Magnesium Hydroxide (Magnesium Hydroxide Susp 30 Ml Udc) 30 ml PO Q24H PRN PRN Reason: Constipation Stop: 03/10/22 16:32 Metoclopramide HCl (Metoclopramide Hcl Inj 5 Mg/Ml 2 Ml Vial) 10 mg IV Q6H PRN PRN Reason: Nausea &/or Vomiting Stop: 03/10/22 16:32 Naloxone HCl (Naloxone Hcl 0.4 Mg/1 Ml Vial/Carp) 0.1 mg IV Q5M PRN PRN Reason: Oversedation/Resp depression Stop: 03/10/22 16:32 Ondansetron HCl (Ondansetron Inj 2 Mg/Ml 2 Ml Vial) 4 mg IV Q6H PRN PRN Reason: Nausea &/or Vomiting Stop: 03/10/22 16:32 Ondansetron HCl (Ondansetron 4 Mg Od Tab) 4 mg PO Q6H PRN PRN Reason: Nausea Stop: 03/10/22 16:32 Oxycodone HCl (Oxycodone Hcl Ir 5 Mg Tab (Immediate Release)) 5 - 10 mg PO Q4H PRN PRN Reason: Pain & Pre PT Stop: 02/22/22 16:32 Last Admin: 02/09/22 10:49 Dose: 5 mg Pantoprazole Sodium (Pantoprazole 40 Mg Tab) 40 mg PO QAM [facility]; Protocol Stop: 03/11/22 08:59 Last Admin: 02/09/22 08:58 Dose: 40 mg Pneumococcal Polyvalent Vaccine (Do Not Administer Pneumococcal Vaccine) 1 each N/A PRN PRN PRN Reason: Notification Stop: 03/10/22 16:32 Polyethylene Glycol (Polyethylene (Miralax) 17 Gm Pack) 17 gm PO Q6 [facility] Stop: 03/11/22 05:59 Last Admin: 02/09/22 11:55 Dose: 17 gm Senna/Docusate Sodium (Docusate Sodium/Senna 50/8.6mg Tab) 2 tab PO HS [facility] Stop: 03/10/22 20:59 Last Admin: 02/08/22 21:00 Dose: 2 tab Sodium Biphosphate/Sodium Phosphate (Sod Phosphate/Sod Biphosphate Enema 132 Ml Btl) 132 ml MO ONE PRN PRN Reason: Constipation Stop: 03/10/22 16:32 Tamsulosin HCl (Tamsulosin Hcl 0.4 Mg Cap) 0.4 mg PO HS [facility] Stop: 03/10/22 20:59 Last Admin: 02/08/22 20:59 Dose: 0.4 mg Tramadol HCl (Tramadol Hcl 50 Mg Tablet) 50 - 100 mg PO Q4H PRN PRN Reason: Moderate-Severe pain & Pre PT Stop: 03/10/22 16:32 Zolpidem Tartrate (Zolpidem Tartrate 10 Mg Tab) 10 mg PO HS [facility] Stop: 03/10/22 20:59 Last Admin: 02/08/22 20:58 Dose: 10 mg
--- NOTE | 2022-02-09 21:10 | Electrocardiogram Report ---
Test Reason : Blood Pressure : / mmHG Vent. Rate : 095 BPM Atrial Rate : 095 BPM P-R Int : 138 ms QRS Dur : 088 ms QT Int : 344 ms P-R-T Axes : 043 039 011 degrees QTc Int : 432 ms Normal sinus rhythm Normal ECG When compared with ECG of 16-JAN-2022 11:36, Inverted T waves have replaced nonspecific T wave abnormality in Inferior leads Confirmed by Roman Claudio ([id number]) on 02/09/2022 9:09:58 PM Referred By: Blane Cooper Confirmed By:Roman Claudio
[2022-02-09] MEDS: TAMSULOSIN HCL 0.4 MG CAP PO SCH (21:48)
[2022-02-09] MEDS: DOCUSATE SODIUM/SENNA 50/8.6MG TAB PO SCH (21:51)
[2022-02-09] MEDS: ZOLPIDEM TARTRATE 10 MG TAB PO SCH (21:52)
[2022-02-10] MEDS: POLYETHYLENE (MIRALAX) 17 GM PACK PO SCH ×2 (06:27→13:51)
[2022-02-10] MEDS: buPROPion SR 100 MG TABCR PO SCH (08:12)
[2022-02-10] MEDS: dexAMETHasone 6 MG in SYRINGE 0 ML IV SCH (08:13)
[2022-02-10] MEDS: ATOMOXETINE HCL 40 MG CAPSULE PO SCH (08:13)
[2022-02-10] MEDS: PANTOprazole 40 MG TAB PO SCH (08:13)
[2022-02-10] MEDS: DULoxetine HCL 60 MG CAP PO SCH (08:13)
[2022-02-10] MEDS: GABAPENTIN 300 MG CAP PO SCH (08:14)
[2022-02-10] MEDS: GABAPENTIN 400 MG CAP PO SCH (08:14)
--- NOTE | 2022-02-10 08:46 | Discharge Summary ---
Date of Service February 10, 2022 Admission HPI Per Admitting Provider This is a 56-year-old male well-known to the presents with worsening back and bilateral leg pain. Failing course of nonoperative care is here for surgical intervention. Principal Diagnosis Lumbar spinal stenosis with neurogenic claudication Discharge Data Allergies Allergy/AdvReac Type Severity Reaction Status Date / Time No Known Allergies Allergy Verified 02/08/22 10:06 Consultations 02/08/22 16:33 Consult Hospitalist Routine Procedures Performed Operation Date: 02/08/22 11:55 Actual Procedures p L3-L4 and L5-S1 Decompression, L3-S1 Fusion, Spinal Cord Monitoring(Not Applicable) - Blane Cooper DO s L4-L5 Hardware Removal,(Not Applicable) - Blane Cooper DO Ordered Studies 02/08/22 11:55 FL lumbar spine 2-3V Routine Hospital Course (1) Neurogenic claudication due to lumbar spinal stenosis: Patient underwent lumbar decompression fusion tolerated this well second orthopedic for postoperative. Postop day 1 is up and ambulating progressed to postop day #2. Pain well controlled. Excellent strength testing. Separately discharged home. Discharge orders instructions found in chart for further review. Total Time Total Time Spent Total Time Spent (In Minutes): 20 minutes Discharge Plan Discharge Items Patient Disposition: Home - Self-Care Reason For Visit: Spinal Stenosiis, Lumbar Region Discharge Diagnosis: Spinal stenosis with radiculopathy Activity: As commented below Non-emergency contact: Primary Care Provider Call non-emergency contact if: you have any medication questions Follow-up/Referrals: Jose Silver MD [Primary Care Provider] - Diet: Regular Addtl Attending Provider Instructions: ACTIVITY RECOMMENDATIONS: SELF CARE INSTRUCTIONS AFTER THORACIC/LUMBAR FUSIONS 1. You may walk to your tolerance. It is good exercise for your legs and back. Expect some back and intermittent leg aches and pains. 2. You may perform "counter-top" level activities (make a sandwich, olu with a project, etc.). 3. No bending or lifting of more than 10 pounds or back twisting of any nature (roll like a log when turning in bed). 4. You may ride in a car for 20-30 minutes at a time. No driving until after your first visit with your doctor. 5. Frequent changes of position and restricting sitting to 30 minutes at a time will help limit the amount of back spasms and stiffness you may experience. 6. You may discontinue the use of ambulatory aids (cane, crutches, etc.) once your strength and confidence allow. 7. You may technical instructor the shower and let water strike your incision when you arrive home at least once daily. Do not take a tub bath, sit in a hot tub or go into a swimming pool until after your first recheck in the office. SPECIAL CARE INSTRUCTIONS: VERY IMPORTANT TO READ AND REVIEW A. Your surgical incision has been closed with a cosmetic suture under the skin that will dissolve in about 6 weeks. In 14 days, you can use a pair of clean scissors and cut the suture that is left outside of the skin at the ends of your incision. 1. The small skin tapes can be removed 7 days after surgery if they have not fallen off by that point. 2. You may keep the wound open to air as much as possible to promote healing after post-op day number 5 unless told otherwise by your doctor. 3. If you think the wound looks like it is becoming infected (redness or worsening drainage) and/or you are experiencing fever, chill or worsening back pain and muscle spasms, contact the office so that we may evaluate you as soon as possible. B. Complications are uncommon, but please contact us if you have any signs or symptoms of: 1. wound infection (fever higher than 102.5 degrees F, redness, separation of wound, drainage, or increasing pain from the incision) 2. blood clots in legs (pain, swelling, redness and warmth in legs) 3. urinary tract infection (fever higher than 102.5 degrees F, burning upon urination or increased frequency of urination) 4. nerve problems (inability to walk on your toes or heels, numbness, loss of bowel or bladder control) 5. any other symptoms that concern you C. Please call the office at if you have any concerns or ques tions about your operation or recovery. D. No smoking! Smoking drastically decreases the chance of a solid fusion. E. Do not take any anti-inflammatory medications (Indocin, Advil, Motrin, Aspirin, Naprosyn, etc.) as these may inhibit the chance of a solid fusion. Tylenol is okay to take for pain. MANAGING PAIN AFTER SPINAL SURGERY 1. Narcotic medication is intended for short-term use and will be provided for surgical pain. Surgical pain usually lasts for a period of 4-6 weeks. Narcotic medication includes Percocet, Vicodin, Darvocet, Tylenol #3 or Lortab. 2. Longer-term pain is more appropriately treated with non-narcotic medication such as Tylenol ES. 3. Muscle spasm is not appropriately treated with narcotics. Muscle relaxers such as Soma, Flexeril or Skelaxin can be used along with Tylenol ES. 4. Remember that we all live with some "aches and pains". This is not unusual or uncommon after an injury or as we get older. a. Back pain is expected and may include muscle spasms for 4 to 6 weeks after surgery. The pain should gradually improve. If the pain worsens for no apparent reason, please contact the office. b. Intermittent leg pain may also be experienced and should not be concerned about unless it worsens for no apparent reason. If so, please contact the office. 5. We will provide appropriate medication within the normal guidelines of their prescribed use. We will also be very cautious and aware of potential abuse and extended duration of patients' medication needs. a. Pain medications are for your comfort and to assist with sleep and rest so that the tissue can heal. They are not provided in order to return to normal activity and should not be used through the day. To do so or worsening pain at night can result from ongoing tissue damage and development of tolerance to the prescribed medicine. 6. Please allow 2-3 days to process refills. Prescriptions will not be mailed but must be picked up at the office. FOLLOW UP VISIT: Keep your scheduled follow-up appointment. Any questions, please call the office at . Pending Studies at Discharge: No Stand-Alone Forms: My [employer], Smoking Cessation Medications and DC Order Prescriptions: New tramadol 50 mg tablet 50 mg PO Q6H PRN (Reason: pain, moderate) Qty: 30 0RF oxycodone 5 mg tablet 5 mg PO Q6H PRN (Reason: pain, severe) Qty: 30 0RF Continued bupropion HCl 100 mg Tablet Sustained-Release 12 Hr 100 mg PO BID tamsulosin [Flomax] 0.4 mg Capsule 0.4 mg PO HS omeprazole 20 mg Capsule,Delayed Release(Dr/Ec) 20 mg PO QAM zolpidem 5 mg Tablet 10 mg PO HS zolpidem [Ambien] 10 mg Tablet 10 mg PO HS PRN (Reason: Sleep) atomoxetine [Strattera] 80 mg Capsule 80 mg PO QAM gabapentin tablet 700 mg PO 3XD duloxetine 60 mg PO 1XD Discharge Orders: Discharge Order (Routine); Ordered 02/10/22 Ordered By: Blane Hancock/Other Patient Handouts: Prediabetes, 5 Steps for Eating Healthier Admission Data Admit Date/Time: 02/08/22 15:10 Attending Provider: Blane Cooper Admit Provider: Blane Cooper Primary Care Provider: Jose Silver I. Other Providers: Glendy Hernadez
[2022-02-10] MEDS: oxyCODONE HCL IR 5 MG TAB (IMMEDIATE RELEASE) PO PRN (12:02)
--- NOTE | 2022-02-13 15:50 | Coding Query ---
ANEMIA To promote full compliance with coding requirements relating to patient care, physician participation is requested in all cases of sleep technologist uncertainty. Please assist us with the question(s) below: Coding Question(s): The record reflects the following clinical findings: 02/08 note documented postoperative anemia, expected postop anemia. 1200 cc blood loss from surgery. Hgb declined 2g/dl 02/08 h/h 12.3/37.2 02/09 11.8 35.8 . Serial hematology labs and surgical drain monitored for blood loss. If these findings are indicative of anemia, please specify the known or suspected type by placing an "X" within the parenthesis (x). If other, please document type. Examples are: ( ) Acute blood loss anemia (x ) Acute Postoperative blood loss anemia-the patient had a very slight decrease in Hb from 02/08 to 02/09 (12.3 to 11.8) after an 850cc estimated blood loss per the OR report. He did not require blood and was asymptomatic and fine for discharge. This appears to be an expected postoperative blood loss anemia in the setting of someone who was already anemic to start. sms ( ) Acute postoperative anemia due to dilutional fluids ( ) Chronic blood loss anemia ( ) Anemia of chronic disease ( ) Aplastic anemia ( ) Anemia due to renal disease ( ) Anemia in neoplastic disease ( ) Iron deficient anemia ( ) Anemia, unspecified or other ( ) Other: (please specify) ( ) Unable to determine Thank you [facility]
== END 2022-02-10 13:51 | disposition home or self-care (01) | DRG 454 ==
LOC: ASU 09:23 → PACUINP 15:10 → 3E 20:01
DX: F39 Unspecified mood [affective] disorder; R00.0 Tachycardia, unspecified; K21.9 Gastro-esophageal reflux disease without esophagitis; G47.33 Obstructive sleep apnea (adult) (pediatric); I10 Essential (primary) hypertension; M54.16 Radiculopathy, lumbar region; M48.062 Spinal stenosis, lumbar region with neurogenic claudication; N40.0 Benign prostatic hyperplasia without lower urinary tract symptoms; D62 Acute posthemorrhagic anemia; E86.0 Dehydration; Z86.16 Personal history of COVID-19; Z83.3 Family history of diabetes mellitus